=== PATIENT | male | born 1980 | race Caucasian/White ===

== ENCOUNTER 2017-08-14 15:22 | Observation (INO) | payer BC ==
[2017-08-14 16:01] VITALS: BMI 38.3
[2017-08-14] MEDS ORDERED: ONDANSETRON 4 MG/2 ML VIAL IV PRN (16:47)
[2017-08-14] MEDS ORDERED: ACETAMINOPHEN 500 MG TAB PO PRN (16:47)
[2017-08-14] MEDS ORDERED: BENZONATATE 100 MG CAP PO PRN (18:09)
--- NOTE | 2017-08-14 18:14 | P.SSS ---
Patient History Date of Service: 08/14/17 Primary Care Provider: None Reason for admission: Cough and Congestion History of Present Illness: 37-year-old male with significant past medical history asthma who presented to [facility] ER complaining of having cough congestion and sore throat for about 2- 3 days. Patient stated that he has his son who was recently diagnosed with bronchitis and was given antibiotics by his primary care doctor. Patient stated that he thinks that he got the infection from his son and has been coughing a lot lately as well. Patient states that he does bring up phlegm which is he LL alignment Yifan. Has had nasal congestion and sore throat as well for past 2-3 days. Patient denies having any fever or chills at home. At all to see ER patient was found to have normal white count along with chest x- ray that was within normal limits and CT scan which was also negative for any acute findings. Patient was transferred to the hospital as he continued to have wheezing after 1 treatment. Pt mother is a smoker who smokes in the house. Allergies Penicillins Allergy (Verified 08/14/17 15:41) Unknown Home Medications: Albuterol Inhaler [Ventolin Inhaler*] 2 puff IH Q6H PRN #1 hfa.aer.ad 08/14/17 Fluticasone/Salmeterol [Advair Hfa 115-21 Mcg Inhaler] 2 puff IH BID #2 aer.w.adap 08/14/17 Montelukast [Singulair*] 10 mg PO DAILY #14 tab 08/14/17 Prednisone [Deltasone*] 10 mg PO DAILY #10 tab 08/14/17 Trazodone HCl 100 mg PO BID 08/14/17 - Past Medical/Surgical History Has patient received pneumonia vaccine in the past: No Diabetic: No -: right testicle pain - Family History Brother -: Diabetes - Social History Smoking Status: Never smoker Alcohol use: Yes CD- Drugs: No Caffeine use: Yes Place of Residence: Home Review of Systems General: As per HPI Physical Examination - Vital Signs Temperature: 98.2 F Blood Pressure: 146/77 Pulse: 81 Respirations: 18 Pulse Ox (%): 97 - Physical Exam General: Alert, In no apparent distress, Oriented x3 HEENT: Atraumatic Neck: Supple Respiratory: Clear to auscultation bilaterally, Normal air movement Cardiovascular: Regular rate/rhythm, Normal S1 S2 Gastrointestinal: Normal bowel sounds, Soft and benign, Non-distended, No tenderness Musculoskeletal: No tenderness Integumentary: No rashes Neurological: Normal gait, Normal speech, Normal strength at 5/5 x4 extr, Normal tone, Normal affect Lymphatics: No axilla or inguinal lymphadenopathy - Diagnosis (Problem(s)) (1) Asthma exacerbation Current Visit: Yes Status: Acute Plan: H/O of Intermittent Mild Asthma. now with Exacerbation most likely 2.2 to viral Illness -IV fluids, Nebs and Steroids -DC home today with Inhalers and steroids. Qualifiers: Asthma severity: mild Asthma persistence: intermittent Qualified Code(s) : J45.21 - Mild intermittent asthma with (acute) exacerbation (2) Bronchitis Current Visit: Yes Status: Chronic Treatment Summary: Patient received 1 treatment of Duonebs here in the hospital. No wheezing was found and he physical examination this patient was discharged home under stable condition. Patient was given prescription for albuterol inhaler along with Advair and singular to be taken at home. Patient was also asked to follow up with pulmonology in about 1-2 days post discharge - Disposition Disposition: ROUTINE DISCHARGE Condition: GOOD Diet: Regular Activity: Ad spencer
[2017-08-14] MEDS: NA CHLORIDE 0.9% 1,000 ML IV SCH ×2 (18:19→20:20)
[2017-08-14] MEDS ORDERED: PHENOL 1.4% ORAL SPRAY 180ML MM PRN (18:54)
[2017-08-14] MEDS: IPRATROPIUM BROM 0.5MG/2.5ML NEB SCH (19:40)
[2017-08-14] MEDS: ALBUTEROL 2.5 MG/3 ML NEB SOL NEB SCH (19:41)
[2017-08-14 21:36] VITALS: O2SAT 95
[2017-08-14] MEDS ORDERED: GUAIFENESIN/CODEINE 5ML UCUP PO PRN (23:23)
[2017-08-14] MEDS ORDERED: TEMAZEPAM 15 MG CAP PO PRN (23:26)
[2017-08-15] MEDS: ALBUTEROL 2.5 MG/3 ML NEB SOL NEB SCH ×2 (01:13→07:56)
[2017-08-15] MEDS: IPRATROPIUM BROM 0.5MG/2.5ML NEB SCH ×2 (01:13→07:56)
--- NOTE | 2017-08-15 03:12 | P.PN ---
Date of Service: 08/14/17 Patient was upset that he was just transferred from outside emergency room to our facility and being discharged. He states he was not feeling any better. He is hoarse and not really able to make out what he was saying at times because he kept losing his voice. At the emergency room across the street he was diagnosed with pneumonia and transferred to our facility at around 3:30 p.m. Patient appeared clinically stable after he arrived, and he was arranged for discharge home. However, he tells me that he is not feeling much better. He does not feel like he is ready to be discharged. Patient did just arrived so at this time I will hold his discharge and reassess him in the morning. He has a persistent cough, he is hoarse, and he is getting short of breath really easily. He is also congested, so will continue with current treatment plan that he was admitted to the hospital with initially. He does have morbid obesity and has a history of ADD, as well as depression as his brother about a year ago and he has been having a hard time dealing with the loss of his brother. He takes Depakote and trazodone for this. This is prescribed by Dr. Mcknight. 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 Will continue to monitor him closely overnight, and I anticipate discharge home in the morning if he remains afebrile and his respiratory status does not worsen.
[2017-08-15 04:39] LABS: Absolute Lymphocytes (CBC) 1.5 K/uL (0.7-4.9); Absolute Monocytes 0.6 K/uL (0.1-1.3); Absolute Neutrophil 11.9 K/uL (1.8-8.0); Basophils % 0.4 % (0-1.3); Hematocrit 38.2 % (39.6-49.0); Lymphocytes % 10.6 % (15.3-44.8); MCH 28.1 pg (27.0-35.0); MCV 87.2 fL (80-100); MPV 8.6 fL (7.6-11.3); Monocytes % 4.1 % (3.3-12.3); RBC Red Blood Cell Count 4.38 M/uL (4.33-5.43)
[2017-08-15] MEDS ORDERED: CEFTRIAXONE/SWI 1gm 1 GM/10 ML SYR ONE (05:17)
[2017-08-15] MEDS: predniSONE 10 MG TAB PO SCH ×2 (05:23→08:58)
[2017-08-15] MEDS ORDERED: CEFTRIAXONE 1 GM/NS 50 ML 1 GM/50 ML BAG IV SCH (06:00)
--- NOTE | 2017-08-15 07:05 | P.DS ---
Discharge Date: 08/15/17 Primary Care Provider: None Disposition: ROUTINE DISCHARGE Discharge Condition: GOOD Reason for Admission: Cough and Congestion Brief History of Present Illness: 37-year-old male with significant past medical history asthma who presented to [place] ER complaining of having cough congestion and sore throat for about 2-3 days. Patient stated that he has his son who was recently diagnosed with bronchitis and was given antibiotics by his primary care doctor. Patient stated that he thinks that he got the infection from his son and has been coughing a lot lately as well. Patient has been hoarse and difficult to understand. He has had nasal congestion and sore throat as well for past 2-3 days. Patient denies having any fever or chills at home. In the ER patient was found to have normal white count along with chest x-ray with possible pneumonia and CT scan which was negative for any acute pathology. Patient was transferred to the hospital as he continued to have wheezing after 1 treatment. Vital Signs/Physical Exam: Temp Pulse Resp BP Pulse Ox 98.7 F 75 18 103/59 L 98 08/15/17 04:00 08/15/17 04:00 08/15/17 04:00 08/15/17 04:00 08/15/17 04:00 Laboratory Data at Discharge: WBC 14.0 K/uL (4.3-10.9) H 08/15/17 04:16 Hgb 12.3 g/dL (13.6-17.9) L 08/15/17 04:16 Hct 38.2 % (39.6-49.0) L 08/15/17 04:16 Plt Count 343 K/uL (152-406) 08/15/17 04:16 Sodium Cancelled 08/15/17 05:00 Potassium Cancelled 08/15/17 05:00 BUN Cancelled 08/15/17 05:00 Creatinine Cancelled 08/15/17 05:00 Glucose Cancelled 08/15/17 05:00 Phosphorus Cancelled 08/15/17 05:00 Magnesium Cancelled 08/15/17 05:00 B-Natriuretic Peptide 41 pg/ml (<=100) 08/15/17 04:16 Home Medications: Albuterol Inhaler [Ventolin Inhaler*] 2 puff IH Q6H PRN #1 hfa.aer.ad 08/14/17 Montelukast [Singulair*] 10 mg PO DAILY #14 tab 08/14/17 Prednisone [Deltasone*] 10 mg PO DAILY #10 tab 08/14/17 Trazodone HCl 100 mg PO BID 08/14/17 Cefdinir [Omnicef] 300 mg PO BID #10 capsule 08/15/17 Guaifen W/Codeine Syrup [ROBITUSSIN A-C Syrup*] 10 ml PO BID PRN #100 ml New Medications: Albuterol Inhaler [Ventolin Inhaler*] 2 puff IH Q6H PRN #1 hfa.aer.ad PRN Reason: Shortness Of Breath Cefdinir [Omnicef] 300 mg PO BID #10 capsule Guaifen W/Codeine Syrup [ROBITUSSIN A-C Syrup*] 10 ml PO BID PRN #100 ml PRN Reason: Cough Montelukast [Singulair*] 10 mg PO DAILY #14 tab Prednisone [Deltasone*] 10 mg PO DAILY #10 tab Patient Discharge Instructions: OK TO DC IV AND DC HOME. FOLLOW-UP WITH PRIMARY CARE PROVIDER IN 1-2 WEEKS. FOLLOW-UP WITH Pulmonary IN 1-2 WEEKS. RETURN TO THE ER IF symptoms worsen. CALL or TEXT DR. PARKER AT [phone] IF ANY QUESTIONS REGARDING HOSPITAL STAY. PLEASE CALL THE FLOOR AT [phone] IF ANY MEDICATION OR NURSING QUESTIONS. Diet: Regular Activity: Ad spencer Followup: Jeancarlos Franz MD [ACTIVE - CAN ADMIT] - 1 Week (Call to schedule an appointment)
[2017-08-15 08:17] VITALS: BP 126/58; TEMP 98
[2017-08-15] MEDS ORDERED: predniSONE 10 MG TAB PO SCH (09:00)
[2017-08-16] MEDS ORDERED: CEFTRIAXONE/SWI 1gm 1 GM/10 ML SYR IV SCH (06:00)
== END 2017-08-15 10:01 | disposition home or self-care (01) ==
LOC: 4TH 15:22
PROVIDERS: ADMIT Family Medicine; ATTEND Family Medicine
DX: J45.901 Unspecified asthma with (acute) exacerbation (principal); E66.01 Morbid (severe) obesity due to excess calories; Z68.38 Body mass index [BMI] 38.0-38.9, adult; F32.9 Major depressive disorder, single episode, unspecified
CPT/HCPCS: 36415; 83880; 85025; 94760; G0378; J0696; J7030; J7512

== ENCOUNTER 2018-01-02 11:09 | Emergency (ER) | payer BC ==
[2018-01-02] MEDS ORDERED: HYDROCODONE/APAP 7.5/325 MG TAB ONE (11:38)
[2018-01-02] MEDS ORDERED: MORPHINE 4 MG/ML SYR ONE (12:22)
[2018-01-02] MEDS ORDERED: ONDANSETRON 4 MG/2 ML VIAL ONE (12:22)
--- NOTE | 2018-01-02 13:07 | RAD REPORT ---
EXAM DESCRIPTION: CT - Chest Abdomen W Con - 01/02/2018 12:58 pm CLINICAL HISTORY: Fall, pain and trauma to the left-sided chest and abdomen, severe left-sided rib p ain COMPARISON: None. TECHNIQUE: During dynamic enhancement using 100 milliliters nonionic IV contrast, axial 5 millimeter thick images of the chest and abdomen were obtained. Biphasic technique was utilized through the abd omen. Oral contrast was administered. All CT scans are performed using dose optimization technique as appropriate and may include automated exposure control or mA/KV adjustment according to patient size. FINDINGS: No pulmonary contusion or acute lung parenchymal process. No pneumothorax or pleural effus ion. No chest wall mass or abnormal axillary lymphadenopathy seen. Mediastinal and hilar regions sh ow no mass or lymphadenopathy. No pericardial thickening or effusion. No dislocation of the left hum eral head. No scapula fracture seen. Small portion of the superior scapula that is obscured. No clavi luciana fracture. No displaced rib fractures are present. No acute rib fractures confirmed. Costochondral junctions are not outside of normal range. No sternum fracture. No significant contusion or edema ch concha in the left-sided subcutaneous fatty tissues. The liver and spleen show no acute traumatic injury. Moderate diffuse fatty infiltration is present i n the liver. Pancreas, gallbladder and biliary tree are unremarkable. Renal function is symmetric wit h no traumatic kidney finding. Adrenal glands are normal. No traumatic injury to the bowel. No acute bowel finding. No free air, free fluid or inflammatory str anding. No hernia, mass or bulky lymphadenopathy. No significant bone or vascular finding. IMPRESSION: No pneumothorax, pulmonary contusion or acute CT chest finding. No rib fractures confirm ed. Fatty infiltration of the liver. No acute traumatic injury to the abdomen.
--- NOTE | 2018-01-02 13:14 | EDPHYS ---
Physician Documentation [facility] Name: Garth Agarwal Age: 37 yrs Sex: Male : 1980 Arrival Date: 01/02/2018 Time: 11:11 Bed 16 Private MD: None, None ED Physician Sawyer Pérez HPI: 01/02 11:33 This 37 yrs old Male presents to ER via Ambulatory with complaints of Fall kb Injury. 11:33 Details of fall: The patient fell from a height, out of a tree, approximately 2 feet, kb tree stump. Onset: The symptoms/episode began/occurred 2 hour(s) ago. Associated injuries: The patient sustained injury to the chest, specifically the left lower chest, contusion, pain with breathing, pain with movement, swelling, tenderness. Severity of symptoms: At their worst the symptoms were moderate, in the emergency department the symptoms are unchanged. The patient has not experienced similar symptoms in the past. The patient has not recently seen a physician. Historical: - Allergies: 11:18 PENICILLINS; hb - Home Meds: 11:18 None [Active]; hb - PMHx: 11:18 None; hb - PSHx: 11:18 None; hb - Immunization history:: Adult Immunizations up to date. - Social history:: Smoking status: Patient/guardian denies using tobacco. - Immunization history: Last tetanus immunization: - up to date. - Ebola Screening: : No symptoms or risks identified at this time. ROS: 11:33 Constitutional: Negative for fever, chills, and weight loss, Respiratory: Negative for kb shortness of breath, cough, wheezing, and pleuritic chest pain, Abdomen/GI: Negative for abdominal pain, nausea, vomiting, diarrhea, and constipation, Back: Negative for injury and pain, : Negative for injury, bleeding, discharge, and swelling, MS/Extremity: Negative for injury and deformity, Skin: Negative for injury, rash, and discoloration, Neuro: Negative for headache, weakness, numbness, tingling, and seizure. 11:33 Cardiovascular: Positive for chest pain, with movement, of the left lower chest. Exam: 11:33 Constitutional: This is a well developed, well nourished patient who is awake, alert, kb and in no acute distress. Head/Face: Normocephalic, atraumatic. Cardiovascular: Regular rate and rhythm with a normal S1 and S2. No gallops, murmurs, or rubs. Normal PMI, no JVD. No pulse deficits. Respiratory: Lungs have equal breath sounds bilaterally, clear to auscultation and percussion. No rales, rhonchi or wheezes noted. No increased work of breathing, no retractions or nasal flaring. Abdomen/GI: Soft, non-tender, with normal bowel sounds. No distension or tympany. No guarding or rebound. No evidence of tenderness throughout. Back: No spinal tenderness. No costovertebral tenderness. Full range of motion. Skin: Warm, dry with normal turgor. Normal color with no rashes, no lesions, and no evidence of cellulitis. MS/ Extremity: Pulses equal, no cyanosis. Neurovascular intact. Full, normal range of motion. Neuro: Awake and alert, GCS 15, oriented to person, place, time, and situation. Cranial nerves II-XII grossly intact. Motor strength 5/5 in all extremities. Sensory grossly intact. Cerebellar exam normal. Normal gait. 11:33 Chest/axilla: Inspection: erythema, Palpation: tenderness, that is moderate, of the left lower chest, that totally reproduces the patient's complaints. Vital Signs: 11:18 BP 149 / 102; Pulse 88; Resp 16; Temp 97.8; Pulse Ox 98% on R/A; Weight 108.86 kg; hb Height 5 ft. 6 in. (167.64 cm); Pain 10/10; 12:34 BP 154 / 100; Pulse 85; Resp 18; Pulse Ox 100% on R/A; hj 13:19 BP 156 / 90; Pulse 84; Resp 18; Pulse Ox 100% on R/A; hj 11:18 Body Mass Index 38.74 (108.86 kg, 167.64 cm) hb Osito Coma Score: 11:00 Eye Response: spontaneous(4). Verbal Response: oriented(5). Motor Response: obeys hj commands(6). Total: 15. Trauma Score (Adult): 11:00 Eye Response: spontaneous(1); Verbal Response: oriented(1); Motor Response: obeys commands(2); Systolic BP: > 89 mm Hg(4); Respiratory Rate: 10 to 29 per min(4); [place] Score: 15; Trauma Score: 12 MDM: 11:25 Patient medically screened. kb 11:36 Data reviewed: vital signs, nurses notes. Data interpreted: Pulse oximetry: on room air kb is 98 %. Interpretation: normal. 13:09 Counseling: I had a detailed discussion with the patient and/or guardian regarding: the kb historical points, exam findings, and any diagnostic results supporting the discharge/admit diagnosis, lab results, radiology results, the need for outpatient follow up, a family practitioner, to return to the emergency department if symptoms worsen or persist or if there are any questions or concerns that arise at home. 01/02 11:30 Order name: Creatinine for Radiology; Complete Time: 12:31 kb 01/02 11:30 Order name: CT Chest Abdomen W/ Contrast; Complete Time: 13:09 kb 01/02 11:30 Order name: IV Start; Complete Time: 11:55 kb Administered Medications: 11:30 Drug: [place] (7.5 mg-325 mg) 1 tabs Route: PO; hj 11:55 Follow up: Response: No adverse reaction; Pain is decreased hj 12:16 Drug: morphine 4 mg Route: IVP; Site: left antecubital; hj 13:15 Follow up: Response: No adverse reaction; Pain is decreased hj 12:16 Drug: Zofran 4 mg Route: IVP; Site: left antecubital; hj 13:15 Follow up: Response: No adverse reaction; Nausea is decreased hj 13:19 Drug: TORadol 30 mg Route: IVP; Site: left antecubital; hj 13:24 Follow up: Response: No adverse reaction hj Disposition: 01/02/18 13:13 Discharged to Home. Impression: Contusion of left front wall of thorax. - Condition is Stable. - Discharge Instructions: Chest Contusion, [id number]. - Prescriptions for Tylenol- Codeine #3 300-30 mg Oral Tablet - take 1 tablet by ORAL route every 6 hours As needed; 15 tablet. orphenadrine citrate 100 mg Oral Tablet Sustained Release - take 1 tablet by ORAL route 2 times per day As needed; 20 tablet. - Medication Reconciliation Form, Thank You Letter, Antibiotic Education, Prescription Opioid Use form. - Follow up: Emergency Department; When: As needed; Reason: Worsening of condition. Follow up: Private Physician; When: 2 - 3 days; Reason: Recheck today's complaints, Continuance of care, Re-evaluation by your physician. Signatures: Dispatcher [employer] EDWI Quiana Arce, FLEET ASSISTANT-C FLEET ASSISTANT-Ckb Osei Arce, RN RN Lisbeth Forde, RN RN Corrections: (The following items were deleted from the chart) 11:42 11:25 Chest Pa And Lat (2 Views)+RAD.RAD.BRZ ordered. [facility] EDWI 13:25 13:13 01/02/2018 13:13 Discharged to Home. Impression: Contusion of left front wall of hj thorax. Condition is Stable. Forms are Medication Reconciliation Form, Thank You Letter, Antibiotic Education, Prescription Opioid Use. Follow up: Emergency Department; When: As needed; Reason: Worsening of condition. Follow up: Private Physician; When: 2 - 3 days; Reason: Recheck today's complaints, Continuance of care, Re-evaluation by your physician. kb
--- NOTE | 2018-01-02 13:14 | ER ---
Nurse's Notes [facility] Emergency Department Name: Garth Agarwal Age: 37 yrs Sex: Male : 1980 Arrival Date: 01/02/2018 Time: 11:11 Bed 16 Private MD: None, None Diagnosis: Contusion of left front wall of thorax Presentation: 01/02 11:15 Presenting complaint: Patient states: I was standing on a tree stump trying to change a hb light and fell off and landed on my left side and I felt something pop in my chest. Pt now c/o severe left sided ribcage pain 01/17. Denies LOC. Care prior to arrival: Medication(s) given: Aleve 2 hrs WEB PRESSMAN. 11:15 Acuity: CAROL 3 hb 11:15 Method Of Arrival: Ambulatory hb 11:17 Mechanism of Injury: Fall out of chair approximately 2 feet. Trauma event details: hb Injury occurred in the [facility], Injury occurred: at home. Injury occurred: January 02, 2018 Injury occurred at: 09:00. 11:18 Transition of care: patient was not received from another setting of care. Onset of hj symptoms was January 02, 2018. Risk Assessment: Do you want to hurt yourself or someone else? Patient reports no desire to harm self or others. Initial Sepsis Screen: Does the patient meet any 2 criteria? No. Patient's initial sepsis screen is negative. Does the patient have a suspected source of infection? No. Patient's initial sepsis screen is negative. Triage Assessment: 11:18 General: Appears in no apparent distress. uncomfortable, obese, Behavior is hj cooperative, appropriate for age, crying. Pain: Complains of pain in chest. 11:18 EENT: No signs and/or symptoms were reported regarding the EENT system. Neuro: Level of Consciousness is awake, alert, obeys commands, Oriented to person, place, time, situation, Appropriate for age. Cardiovascular: Capillary refill < 3 seconds Patient's skin is warm and dry. Respiratory: Airway is patent Respiratory effort is even, unlabored, Respiratory pattern is regular, symmetrical. GI: No signs and/or symptoms were reported involving the gastrointestinal system. : No signs and/or symptoms were reported regarding the genitourinary system. Derm: No signs and/or symptoms reported regarding the dermatologic system. Musculoskeletal: Reports pain in chest. Trauma Activation: Not Applicable Physician: ED Physician; Name: ; Notified At: ; Arrived At: Physician: General Surgeon; Name: ; Notified At: ; Arrived At: Physician: Radiology; Name: ; Notified At: ; Arrived At: Physician: Respiratory; Name: ; Notified At: ; Arrived At: Physician: Lab; Name: ; Notified At: ; Arrived At: Historical: - Allergies: 11:18 PENICILLINS; hb - Home Meds: 11:18 None [Active]; hb - PMHx: 11:18 None; hb - PSHx: 11:18 None; hb - Immunization history:: Adult Immunizations up to date. - Social history:: Smoking status: Patient/guardian denies using tobacco. - Immunization history: Last tetanus immunization: - up to date. - Ebola Screening: : No symptoms or risks identified at this time. Screenin:45 Abuse screen: Denies threats or abuse. Denies injuries from another. Nutritional hj screening: No deficits noted. Tuberculosis screening: No symptoms or risk factors identified. Fall Risk Secondary diagnosis (15 points). Primary Survey: 11:16 A: Airway: patent, No supplemental oxygen in use on arrival. Oral cavity: clear, hb Trachea midline. Breathing/Chest: Respiratory pattern: regular, Respiratory effort: spontaneous, unlabored, Breath sounds: clear, bilaterally. Chest inspection: symmetrical rise and fall of the chest. Circulation: Skin color: pink, Skin temperature: warm, dry. Disability Alert. 12:24 Reassessment Airway Airway Patent Oxygen No O2 Oral cavity Clear +Gag reflex Trachea hj Midline Breathing/Chest Respiratory pattern Regular Respiratory effort Spontaneous Unlabored Breath sounds Clear Chest inspection Symmetrical Circulation Heart rhythm Sinus rhythm Heart tones Present Pulses Palpable Color [place] Temperature Warm Dry Disability Alert. Secondary Survey: 12:30 HEENT: No deficits noted. Gastrointestinal: No deficits noted. : No signs and/or hj symptoms were reported regarding the genitourinary system. Musculoskeletal: Reports pain in chest. Assessment: 12:14 Reassessment: still complaints of pain; MD notified;. hj Vital Signs: 11:18 BP 149 / 102; Pulse 88; Resp 16; Temp 97.8; Pulse Ox 98% on R/A; Weight 108.86 kg; hb Height 5 ft. 6 in. (167.64 cm); Pain 10/10; 12:34 BP 154 / 100; Pulse 85; Resp 18; Pulse Ox 100% on R/A; hj 13:19 BP 156 / 90; Pulse 84; Resp 18; Pulse Ox 100% on R/A; hj 11:18 Body Mass Index 38.74 (108.86 kg, 167.64 cm) hb Osito Coma Score: 11:00 Eye Response: spontaneous(4). Verbal Response: oriented(5). Motor Response: obeys hj commands(6). Total: 15. Trauma Score (Adult): 11:00 Eye Response: spontaneous(1); Verbal Response: oriented(1); Motor Response: obeys hj commands(2); Systolic BP: > 89 mm Hg(4); Respiratory Rate: 10 to 29 per min(4); [place] Score: 15; Trauma Score: 12 ED Course: 11:11 Patient arrived in ED. mr 11:12 None, None is Private Physician. mr 11:16 Triage completed. hb 11:18 Arm band placed on right wrist. hb 11:18 Patient has correct armband on for positive identification. Placed in gown. Bed in low hj position. Call light in reach. Side rails up X 1. Adult w/ patient. 11:18 Patient maintains SpO2 saturation greater than 95% on room air. hj 11:18 Thermoregulation: warm blanket given to patient. hj 11:20 Inserted saline lock: 22 gauge in left antecubital area, using aseptic technique. Blood hj collected. 11:25 Quiana [facility]ce FNP-C [facility]. kb 11:25 Sawyer Pérez MD is Attending Physician. kb 11:30 Osei Arce RN is Primary Nurse. hj 12:58 CT completed. Patient tolerated procedure well. Patient moved to CT via wheelchair. Patient moved back from CT. 12:58 CT Chest Abdomen W/ Contrast In Process Unspecified. EDMS 13:20 No provider procedures requiring assistance completed. IV discontinued, intact. hj Administered Medications: 11:30 Drug: [place] (7.5 mg-325 mg) 1 tabs Route: PO; hj 11:55 Follow up: Response: No adverse reaction; Pain is decreased hj 12:16 Drug: morphine 4 mg Route: IVP; Site: left antecubital; hj 13:15 Follow up: Response: No adverse reaction; Pain is decreased hj 12:16 Drug: Zofran 4 mg Route: IVP; Site: left antecubital; hj 13:15 Follow up: Response: No adverse reaction; Nausea is decreased hj 13:19 Drug: TORadol 30 mg Route: IVP; Site: left antecubital; hj 13:24 Follow up: Response: No adverse reaction hj Intake: 13:25 PO: 50ml; Total: 50ml. hj Output: 13:25 Urine: 0ml; Total: 0ml. hj Outcome: 13:13 Discharge ordered by . keyonna 13:24 Discharged to home ambulatory, with family. hj 13:24 Condition: stable 13:24 Discharge instructions given to patient, family, Instructed on discharge instructions, follow up and referral plans. medication usage, Demonstrated understanding of instructions, follow-up care, medications, Prescriptions given X 2. 13:25 Patient's length of stay was not longer than 2 hours. hj 13:25 Patient left the ED. Signatures: Dispatcher [employer] EDAK Quiana Arce, JOHN CABRERA-Carmen Duckworth Susan Osei Arce, ALAN RN Lisbeth Forde, ALAN RN hb Corrections: (The following items were deleted from the chart) 11:17 11:15 Care prior to arrival: None. hb hb
[2018-01-02] MEDS ORDERED: KETOROLAC 30 MG/ML INJ ONE (13:28)
[2018-01-02 13:32] VITALS: TEMP 97.8
[2018-01-02 13:33] VITALS: O2SAT 100
[2018-01-02 13:34] VITALS: BP 156/90
== END 2018-01-02 13:25 | disposition home or self-care (01) ==
LOC: ER 11:09
DX: S20.212A Contusion of left front wall of thorax, initial encounter (principal); W14.XXXA Fall from tree, initial encounter; Y93.9 Activity, unspecified; Y92.9 Unspecified place or not applicable; Z88.0 Allergy status to penicillin
CPT/HCPCS: 36415; 71260; 74160; 96374; 96375; 99285; J2405; Q9967

== ENCOUNTER 2021-08-09 23:57 | Observation (INO) | payer BC, SELFPAY ==
--- OUTSIDE RECORDS SUMMARY | 2021-08-09 23:59 | XMS REPORT | Continuity of Care Document ---
:1980 Author Organization [facility] t Address [address] [place] [address] Care Team Providers Name Role Phone Pcp, Does Not Have A Primary Care Physician Ana Cristina Pettit DO Attending Clinician Payers Payer Name Policy Type Policy Number Effective Date Expiration Date S [facility] [id number] 2015 00:00:00 Problems Condition Condition Condition Status Onset Resolution Last Treating Co mments Source Name Details Category Date Date Treatment Clinician Date No known No known Disease Unive rs active active ity of problems problems [facility] Allergies, Adverse Reactions, Alerts Allergy Allergy Status Severity Reaction(s) Onset Inactive Treating Comm ents Source Name Type Date Date Clinician Penicill Propensi Active Rash Univer s in ty to 8-26 ity of adverse 00:00: [place] reaction 00 [facility] [place] PENICILL DRUG Active Rash 2020-0 Univers IN INGREDI 8-26 ity of 00:00: [place] 00 [facility] NO KNOWN Drug Active Univers ALLERGIE Class ity of S [facility] Social History Social Habit Start Date Stop Date Quantity Comments Source Exposure to Not sure [facility] SARS-CoV-2 (event) Medica l Branch Sex Assigned At [birth year] [facility] 00:00:00 00:00:00 [facility] Smoking Status Start Date Stop Date Source Unknown if ever smoked [facility] Medications Ordered Filled Start Stop Current Ordering Indication Dosage Frequency Signature Comments Components Source Medication Medication Date Date Medication? Clinician (SIG) Name Name diazePAM 2020-0 2021- No 5mg 5 mg, Univers (VALIUM) 12-04 Oral, ity of tablet 5 mg 03:15[place]16 [place], [facility] 12/03/20 at Branch 2215, GOLD diazePAM 2020- No 5mg 5 mg, Univers (VALIUM) 12-04 Oral, ity of tablet 5 mg 03:15: 02:16 [place] dose, [facility] 12/03/20 at Branch 2215, GOLD HYDROcodone 2020- No 1{tbl} 1 tablet, Univers -acetaminop 12-04 Oral, ity of hen (NORCO 02:30: 01:44 ONCE, 1 [place] as 5) 5-325 mg 00 :00 dose, [facility] tablet 1 12/03/20 at [facility] tablet 2130, GOLD HYDROcodone 2020- No 1{tbl} 1 tablet, Univers -acetaminop 12-04 Oral, ity of hen (NORCO 02:30: 01:44 ONCE, 1 [place] as 5) 5-325 mg 00 :00 dose, [facility] tablet 1 12/03/20 at [facility] tablet 2130, GOLD ketorolac 2020- No 30mg 30 mg, Unive rs (TORADOL) 12-04 Slow IV ity of injection 02:00: 01:05 Push, [place] 30 mg 00 :00 ONCE, 1 Medical dose, [facility] 12/03/20 at 2100, GOLD
Fa culty member approving Restricted medication : DIANNE PETTIT ketorolac 2020- No 30mg 30 mg, Unive rs (TORADOL) 12-04 Slow IV ity of injection 02:00: 01:05 Push, [place] 30 mg 00 :00 ONCE, 1 Medical dose, [facility] 12/03/20 at 2100, GOLD
Fa culty member approving Restricted medication : DIANNE PETTIT cyclobenzap Yes [id number] 10mg Take 1 Univers rine 10 mg 12-03 tablet by ity of tablet 00:00: mouth 3 [place] 00 (three) Medical times [place] daily as needed for Muscle Spasms. cyclobenzap Yes [id number] 10mg Take 1 [facility] rin 10 mg 8-26 tablet by ity of tablet 00:00: mouth 3 00 (three) Medical times [place] daily as needed for Muscle Spasms. Vital Signs Vital Name Observation Time Observation Value Comments Source Systolic blood 2020-12-04 02:00:00 156 mm[Hg] [facility] Diastolic blood 2020-12-04 02:00:00 91 mm[Hg] [facility] rate 2020-12-04 02:00:00 61 /min [facility] Respiratory rate 2020-12-04 02:00:00 24 /min [facility] Oxygen saturation in 2020-12-04 02:00:00 97 /min [facility] Arterial blood by [facility] Pulse oximetry Branch Body temperature 2020-12-03 23:33:[address] [facility] Body weight 2020-12-03 23:33:00 97.523 kg [facility] Procedures Procedure Date / Time Performed Performing Clinician Sourc e XR CHEST 1 VW 2020-12-04 00:38:35 Chandler, [facility] LIPASE 2020-12-03 23:53:00 [facility] TROPONIN I 2020-12-03 23:53:00 Poca [facility] COMP. METABOLIC PANEL 2020-12-03 23:53:00 Jh Chandler [facility] ([id number]) [facility] CBC WITH DIFF 2020-12-03 23:53:00 Chandler, [facility] NOTICE OF PRIVACY 2020-12-03 23:17:10 Doctor Unassigned, No [facility] Name Medical Branch CONSENT/REFUSAL FOR 2020-12-03 23:16:35 Doctor Unassigned, No Un [facility] DIAGNOSIS AND Name Medical Branch TREATMENT CONSENT/REFUSAL FOR 2020-12-03 23:16:33 Doctor Unassigned, No [facility] [place] DIAGNOSIS AND Name Medical Branch TREATMENT Encounters Start End Encounter Admission Attending Care Care Encounter Source Date/Time Date/Time Type Type Clinicians Facility Department ID 2020-12-03 2020-12-03 Emergency Karthik, [facility] [id number] Univers 18:41:00 21:29:00 Dianne Boyd [id number] [facility] [id number] [facility] [id number] [facility] Branch 2020-12-03 2020-12-03 Emergency X [facility] ERT [id number] Univers 18:15:00 18:15:00 ity [facility] Results Test Description Test Time Test Comments Results Result Comments Source TROPONIN I 2020-12-04 00:32:23 Test Item Value Reference Range Interpretation Comme nts TROPONIN I (test code = 0.005 ng/mL See_Comment [Au tomated message] The 7839754724) system which ge nerated this result tra nsmitted reference range : <=0.034. The reference r concha was not used to int erpret this result as normal/abnormal . JAVY (test code = JAVY) Reference (Normal) Range (defined by the 99th percentile reference limit): <= 0.034 ng/mL Note: Cardiac troponin begins to rise 3-4 hours after the onset of ischemia. Repeat in 4-6 hours if the sample was drawn within 3-4 hours of the onset of the symptom and found normal. Diagnosis of myocardial injury is made with acute changes in cTn concentrations with at least one serial sample above the 99th percentile upper reference limit (URL), taken together with the patient's clinical presentation. Biotin has been reported to cause a negative bias, interpret results relative to patient's use of biotin. Lab Interpretation Normal (test code = 60135-5) [facility] [id number] 00:32:23 Test Item Value Reference Range Interpretation Comments TROPONIN I (test code = 0.005 ng/mL See_Comment [Au tomated [id number]) message] The sy stem which generated this result transmitted reference range : <=0.034. The reference range was not used to interpret this result as normal/abnormal . JAVY (test code = JAVY) Lab Interpretation Normal (test code = 41428-7) [facility]OLIC PAN[facility] ([id number])2020-12-04 00:21:03 Test Item Value Reference Range Interpretation Comments NA (test code = 141 mmol/L 135-145 3009262280) K (test code = 3.8 mmol/L 3.5-5.0 6317656908) CL (test code = 104 mmol/L 98-108 3229045001) CO2 TOTAL (test code = 28 mmol/L 23-31 7976761019) AGAP (test code = 2-16 8219439357) BUN (test code = 18 mg/dL 7-23 4017147596) GLUCOSE (test code = 120 mg/dL 70-110 H 0471575525) CREATININE (test code = 0.77 mg/dL 0.60-1.25 0677902670) TOTAL BILI (test code = 0.3 mg/dL 0.1-1.2 8640148718) CALCIUM (test code = 9.4 mg/dL 8.6-10.6 3192098875) T PROTEIN (test code = 8.0 g/dL 6.3-8.2 8078106642) ALBUMIN (test code = 4.5 g/dL 3.5-5.0 4263735498) ALK PHOS (test code = 72 U/L 34-122 4482963734) ALTv (test code = 32 U/L 5-50 1742-6) AST(SGOT) (test code = 29 U/L 13-40 2067534837) eGFR (test code = mL/min/1.73m2 0362656432) JAVY (test code = JAVY) Association of Glomerular Filtration Rate (GFR) and Staging of Kidney Disease* + --+ --+ ------+| GFR (mL/min/1.73 m2) ?| With Kidney Damage ?| ?Without Kidney Damage+ --------+ --------+ +| ?>90 ?| ?Stage one ?| ? Normal ?+ ---+ ---+ -------+| ?60-89 ?| ?Stage two ?| ? Decreased GFR ? + --+ --+ ------+| ?30-59 ?| ?Stage three ?| ? Stage three ? + --+ --+ ------+| ?15-29 ?| ?Stage four ? | ? Stage four ?+ ---+ ---+ -------+| ?<15 (or dialysis) ? ?| ?Stage five ? | ? Stage five ?+ ---+ ---+ -------+ *Each stage assumes the associated GFR level has been in effect for at least three months. ?Stages 1 to 5, with or without kidney disease, indicate chronic kidney disease. Notes: Determination of stages one and two (with eGFR >59mL/min/1.73 m2) requires estimation of kidney damage for at least three months as defined by structural or functional abnormalities of the kidney, manifested by either:Pathological abnormalities or Markers of kidney damage (including abnormalities in the composition of the blood or urine or abnormalities in imaging tests). Lab Interpretation Abnormal (test code = 52006-3) [facility]. METABOLIC PANEL ([id number])2020-12-04 00:21:03 Test Item Value Reference Range Interpretation Comments NA (test code = 3990226874) 141 mmol/L 135-145 K (test code = 0585928715) 3.8 mmol/L 3.5-5.0 CL (test code = 4496101608) 104 mmol/L 98-108 CO2 TOTAL (test code = 6200561977) 28 mmol/L 23-31 AGAP (test code = 4131969365) 2-16 BUN (test code = 9875043962) 18 mg/dL 7-23 GLUCOSE (test code = 8369734451) 120 mg/dL 70-110 H CREATININE (test code = 0.77 mg/dL 0.60-1.25 0715028615) TOTAL BILI (test code = 0.3 mg/dL 0.1-1.8 0501420676) CALCIUM (test code = 3127995041) 9.4 mg/dL 8.6-10.6 T PROTEIN (test code = 8613172648) 8.0 g/dL 6.3-8.2 ALBUMIN (test code = 2779842998) 4.5 g/dL 3.5-5.0 ALK PHOS (test code = 9753802759) 72 U/L 34-122 ALTv (test code = 1742-6) 32 U/L 5-50 AST(SGOT) (test code = 2931872613) 29 U/L 13-40 eGFR (test code = 1859394313) mL/min/1.73m2 JAVY (test code = JAVY) Lab Interpretation (test code = Abnormal 47300-2) [facility] [id number] 00:20:42 Test Item Value Reference Range Interpretation Comments LIPASE (test code = 6969644596) 108 U/L 0-220 Lab Interpretation (test code = Normal 13892-2) [facility], [id number] 00:20:42 Test Item Value Reference Range Interpretation Comments LIPASE (test code = 3826813462) 108 U/L 0-220 Lab Interpretation (test code = Normal 27718-4) [facility] WITH [id number] 00:09:41 Test Item Value Reference Range Interpretation Comments WBC (test code = See_Comment [Automated 7190-2) message] The sy stem which generated this result transmitted reference range : 4.20 - 10.70 10*3/?L. The reference range was not used to interpret this result as normal/abnormal . RBC (test code = See_Comment [Automated 799-8) message] The sy stem which generated this result transmitted reference range : 4.26 - 5.52 10*6/?L. The reference range was not used to interpret this result as normal/abnormal . HGB (test code = 13.7 g/dL 12.2-16.4 718-7) HCT (test code = 41.5 % 38.4-49.3 4544-3) MCV (test code = 88.9 fL 81.7-95.6 787-2) MCH (test code = 29.3 pg 26.1-32.7 785-6) MCHC (test code = 33.0 g/dL 31.2-35.0 786-4) RDW-SD (test code = 41.1 fL 38.5-51.6 38811-3) RDW-CV (test code = 12.7 % 12.1-15.4 788-0) PLT (test code = See_Comment H [Automated 797-3) message] The sy stem which generated this result transmitted reference range : 150 - 328 10*3/ ?L. The reference r concha was not used to interpret this result as normal/abnormal . MPV (test code = 10.0 fL 9.8-13.0 11580-9) NRBC/100 WBC (test See_Comment [Automat ed code = 9314143303) message] The system which generated this result transmitted reference range : 0.0 - 10.0 /100 WBCs. The refer ence range was not u sed to interpret th is result as normal/abnormal . NRBC x10^3 (test code <0.01 See_Comment [Auto mated = 8803981637) message] The s ystem which generated this result transmitted reference range : 10*3/?L. The reference range was not used to interpret this result as normal/abnormal . GRAN MAT (NEUT) % 51.6 % (test code = 770-8) IMM GRAN % (test code 0.30 % = 2629853866) LYMPH % (test code = 35.6 % 736-9) MONO % (test code = 4.8 % 5905-5) EOS % (test code = 6.9 % 713-8) BASO % (test code = 0.8 % 706-2) GRAN MAT x10^3(ANC) 4.88 10*3/uL 1.99-6.95 (test code = 4096010265) IMM GRAN x10^3 (test 0.03 10*3/uL 0.00-0.06 code = 4171587754) LYMPH x10^3 (test code 3.37 10*3/uL 1.09-3.23 H = 731-0) MONO x10^3 (test code 0.45 10*3/uL 0.36-1.02 = 742-7) EOS x10^3 (test code = 0.65 10*3/uL 0.06-0.53 H 711-2) BASO x10^3 (test code 0.08 10*3/uL 0.01-0.09 = 704-7) Lab Interpretation Abnormal (test code = 01695-0) [facility] WITH [id number] 00:09:41 Test Item Value Reference Range Interpretation Comments WBC (test code = See_Comment [Automated 6690-2) message] The sy stem which generated this result transmitted reference range : 4.20 - 10.70 10*3/?L. The reference range was not used to interpret this result as normal/abnormal . RBC (test code = See_Comment [Automated 789-8) message] The sy stem which generated this result transmitted reference range : 4.26 - 5.52 10*6/?L. The reference range was not used to interpret this result as normal/abnormal . HGB (test code = 13.7 g/dL 12.2-16.4 718-7) HCT (test code = 41.5 % 38.4-49.3 4544-3) MCV (test code = 88.9 fL 81.7-95.6 787-2) MCH (test code = 29.3 pg 26.1-32.7 785-6) MCHC (test code = 33.0 g/dL 31.2-35.0 786-4) RDW-SD (test code = 41.1 fL 38.5-51.6 07780-5) RDW-CV (test code = 12.7 % 12.1-15.4 788-0) PLT (test code = See_Comment H [Automated 777-3) message] The sy stem which generated this result transmitted reference range : 150 - 328 10*3/ ?L. The reference r concha was not used to interpret this result as normal/abnormal . MPV (test code = 10.0 fL 9.8-13.0 11099-8) NRBC/100 WBC (test See_Comment [Automat ed code = 1864645779) message] The system which generated this result transmitted reference range : 0.0 - 10.0 /100 WBCs. The refer ence range was not u sed to interpret th is result as normal/abnormal . NRBC x10^3 (test code <0.01 See_Comment [Auto mated = 5986416240) message] The s ystem which generated this result transmitted reference range : 10*3/?L. The reference range was not used to interpret this result as normal/abnormal . GRAN MAT (NEUT) % 51.6 % (test code = 770-8) IMM GRAN % (test code 0.30 % = 8294253739) LYMPH % (test code = 35.6 % 736-9) MONO % (test code = 4.8 % 5905-5) EOS % (test code = 6.9 % 713-8) BASO % (test code = 0.8 % 706-2) GRAN MAT x10^3(ANC) 4.88 10*3/uL 1.99-6.95 (test code = 3288362187) IMM GRAN x10^3 (test 0.03 10*3/uL 0.00-0.06 code = 3086026753) LYMPH x10^3 (test code 3.37 10*3/uL 1.09-3.23 H = 731-0) MONO x10^3 (test code 0.45 10*3/uL 0.36-1.02 = 742-7) EOS x10^3 (test code = 0.65 10*3/uL 0.06-0.53 H 711-2) BASO x10^3 (test code 0.08 10*3/uL 0.01-0.09 = 704-7) Lab Interpretation Abnormal (test code = 17547-9) [facility]"
[2021-08-10 00:45] LABS: Absolute Lymphocytes (CBC) 2.9 K/uL (0.7-4.9); Hematocrit 38.9 % (39.6-49.0); Lymphocytes % 38.9 % (15.3-44.8); MPV 8.2 fL (7.6-11.3); RBC Red Blood Cell Count 4.44 M/uL (4.33-5.43)
[2021-08-10] MEDS ORDERED: KETOROLAC 30 MG/ML INJ ONE (00:48)
[2021-08-10] MEDS ORDERED: MORPHINE 2 MG/ML SYR ONE (00:48)
[2021-08-10] MEDS ORDERED: ONDANSETRON 4 MG/2 ML VIAL ONE ×2 (00:49→11:10)
[2021-08-10] MEDS ORDERED: NA CHLORIDE 0.9% 1,000 ML ONE (00:49)
[2021-08-10 00:53] LABS: Albumin 3.9 g/dL (3.4-5.0); Bilirubin Direct 0.1 mg/dL (0-0.2); Bilirubin Total 0.4 mg/dL (0.2-1.0); Potassium 3.3 mmol/L (3.5-5.1); Protein, Total 7.8 g/dL (6.4-8.2)
[2021-08-10 01:20] LABS: Urine Blood Negative (Negative); Urine Glucose Negative (Negative); Urine Protein Negative (Negative); Urine Specific Gravity <=1.005 (1.005-1.030)
[2021-08-10] MEDS ORDERED: HYDROMORPHONE HCL 1 MG/ML INJ ONE ×4 (01:35→11:10)
[2021-08-10] MEDS ORDERED: METRONIDAZOLE 500mg IVPB 500 MG/100 ML BAG IV ONE (02:53)
[2021-08-10] MEDS ORDERED: Levofloxacin 750mg IV 750 MG/150 ML BAG IV ONE (02:54)
--- NOTE | 2021-08-10 03:07 | ER ---
Nurse's Notes [facility] Name: Garth Agarwal Age: 41 yrs Sex: Male : 1980 Arrival Date: 08/09/2021 Time: 23:57 Bed 13 Private MD: Diagnosis: Diverticulitis of large intestine without perforation or abscess without bleeding;Fall (on) (from) unspecified stairs and steps;Hypokalemia;Pain in left hip;Abdominal tenderness;Contusion of abdominal wall Presentation: 08/10 00:11 Chief complaint: Patient states: fell from the 4th step of a 6 foot ladder. landed on lg3 my left side hitting my head. my said she thinks i passed out for a little bit but she is unsure. Coronavirus screen: Client denies travel out of the [place] in the last 14 days. At this time, the client does not indicate any symptoms associated with coronavirus-19. Ebola Screen: No symptoms or risks identified at this time. Initial Sepsis Screen: Does the patient meet any 2 criteria? No. Patient's initial sepsis screen is negative. Does the patient have a suspected source of infection? No. Patient's initial sepsis screen is negative. Risk Assessment: Do you want to hurt yourself or someone else? Patient reports no desire to harm self or others. Onset of symptoms was August 10, 2021. Mechanism of Injury: Fall. 00:11 Method Of Arrival: Wheelchair lg3 00:11 Acuity: CAROL 3 lg3 Triage Assessment: 00:14 General: Appears in no apparent distress. uncomfortable, Behavior is cooperative. Pain: lg3 Complains of pain in left sided head, left flank, left hip and left upper and lower quadrants of abdomen. EENT: No deficits noted. No signs and/or symptoms were reported regarding the EENT system. Neuro: No deficits noted. Level of Consciousness is awake, alert, obeys commands, Oriented to person, place, time, situation, Reports headache in left. Cardiovascular: No deficits noted. Denies chest pain, shortness of breath. Respiratory: No deficits noted. Airway is patent Trachea midline Respiratory effort is even, unlabored, Respiratory pattern is regular, symmetrical. GI: No deficits noted. Abdomen is round non-distended, Bowel sounds present X 4 quads. Reports lower abdominal pain, upper abdominal pain. : No deficits noted. No signs and/or symptoms were reported regarding the genitourinary system. Derm: No deficits noted. No signs and/or symptoms reported regarding the dermatologic system. Skin is intact, is healthy with good turgor, Skin is dry, Skin is pink, warm \T\ dry. Musculoskeletal: Circulation, motion, and sensation intact. Range of motion: intact in all extremities. Historical: - Allergies: 00:14 PENICILLINS; lg3 - Home Meds: 00:14 None [Active]; lg3 - PMHx: 00:14 None; lg3 - PSHx: 00:14 None; lg3 - Immunization history:: Adult Immunizations unknown, Client reports having NOT received the Covid vaccine. - Social history:: Smoking status: Patient denies any tobacco usage or history of. Patient uses alcohol, occasionally. - Family history:: not pertinent. Screenin:27 Abuse screen: Denies threats or abuse. Denies injuries from another. Nutritional lg3 screening: No deficits noted. Tuberculosis screening: No symptoms or risk factors identified. Fall Risk None identified. Assessment: 00:29 General: see triage assessment . lg3 02:04 Reassessment:. General: Appears in no apparent distress. uncomfortable, Behavior is lg3 calm, cooperative. Pain: Complains of pain in left sided abdomen, flank and back Pain currently is 10 out of 10 on a pain scale. Neuro: No deficits noted. Level of Consciousness is awake, alert, obeys commands, Oriented to person, place, time, situation. Cardiovascular: No deficits noted. Denies chest pain, shortness of breath. Respiratory: No deficits noted. Airway is patent Trachea midline Respiratory effort is even, unlabored, Respiratory pattern is regular, symmetrical. GI: Reports lower abdominal pain, upper abdominal pain. : No deficits noted. No signs and/or symptoms were reported regarding the genitourinary system. EENT: No deficits noted. No signs and/or symptoms were reported regarding the EENT system. Derm: No deficits noted. No signs and/or symptoms reported regarding the dermatologic system. Skin is intact, is healthy with good turgor, Skin is dry, Skin is pink, warm \T\ dry. Musculoskeletal: No deficits noted. 03:49 Reassessment: Patient appears in no apparent distress at this time. No changes from lg3 previously documented assessment. Patient and/or family updated on plan of care and expected duration. Pain level reassessed. Patient is alert, oriented x 3, equal unlabored respirations, skin warm/dry/pink. Vital Signs: 00:11 BP 128 / 70; Pulse 82; Resp 23; Temp 97.4(O); Pulse Ox 98% on R/A; Weight 97.52 kg (R); lg3 Height 5 ft. 7 in. (170.18 cm) (R); Pain 10/10; 02:07 BP 112 / 92; Pulse 76; Resp 18; Pulse Ox 99% on R/A; lg3 03:50 BP 135 / 65; Pulse 56; Resp 17; Pulse Ox 98% on R/A; lg3 00:11 Body Mass Index 33.67 (97.52 kg, 170.18 cm) lg3 ED Course: 08/09 23:57 Patient arrived in ED. k 08/10 00:06 Mickey Bruno MD is Attending Physician. elroy 00:11 Shannan Vo, ALAN is Primary Nurse. lg3 00:14 Triage completed. lg3 00:14 Arm band placed on left wrist. lg3 00:24 Inserted saline lock: 20 gauge in right antecubital area, using aseptic technique. vc1 Blood collected. 00:27 Patient has correct armband on for positive identification. Placed in gown. Bed in low lg3 position. Call light in reach. Side rails up X 1. Client placed on continuous cardiac and pulse oximetry monitoring. NIBP monitoring applied. monitor and storage bin tender on. Pulse ox on. NIBP on. Door closed. Noise minimized. Warm blanket given. 00:40 Alcohol Serum/Plasma Sent. lg3 00:40 CBC with Automated Diff Sent. lg3 00:40 Type and Screen Sent. lg3 00:40 Basic Metabolic Panel Sent. lg3 00:40 Liver (Hepatic) Function Sent. lg3 00:40 Lipase Sent. lg3 01:07 Lipase Sent. lg3 01:08 Alcohol Level Sent. lg3 01:08 LFT's Sent. lg3 01:08 Basic Metabolic Panel Sent. lg3 01:08 CBC with Diff Sent. lg3 01:08 Type And Screen Sent. lg3 01:08 CT Traumagram (Head C Spine CAP W Con) Sent. lg3 01:19 Head C Spine Cap W Con In Process Unspecified. EDMS 02:39 Hip Left 2 View XRAY In Process Unspecified. EDMS 02:54 XRAY Chest (1 view) In Process Unspecified. EDMS 02:54 XRAY Pelvis In Process Unspecified. EDMS 02:55 Femur Left XRAY In Process Unspecified. EDMS 03:05 Nelson Peters MD is Hospitalizing Provider. elroy Administered Medications: 01:14 Drug: TORadol (ketorolac) 30 mg Route: IVP; Site: right antecubital; lg3 01:14 Follow up: Response: No adverse reaction lg3 01:15 Drug: morphine 2 mg Route: IVP; Site: right antecubital; lg3 01:15 Follow up: Response: No adverse reaction lg3 01:15 Drug: Zofran (Ondansetron) 4 mg Route: IVP; Site: right antecubital; lg3 01:15 Follow up: Response: No adverse reaction lg3 01:16 Drug: NS 0.9% 1000 ml Route: IV; Rate: 1 bolus; Site: right antecubital; lg3 07:09 Follow up: Response: No adverse reaction; IV Status: Completed infusion; IV Intake: lg3 1000ml 02:15 Drug: Dilaudid (HYDROmorphone) 1 mg Route: IVP; Site: right antecubital; lg3 02:27 Follow up: Response: No adverse reaction lg3 02:45 Drug: Dilaudid (HYDROmorphone) 1 mg Route: IVP; Site: right antecubital; lg3 02:45 Follow up: Response: No adverse reaction lg3 03:41 Drug: levofloxacin 750 mg Volume: 150 ml; Route: IVPB; Infused Over: 90 mins; Site: lg3 right antecubital; 03:41 Follow up: Response: No adverse reaction; IV Status: Completed infusion; IV Intake: lg3 150ml 03:41 Drug: Flagyl (metroNIDAZOLE) 500 mg Volume: 100 ml; Route: IVPB; Rate: 200 ml/hr; lg3 Infused Over: 30 mins; Site: right antecubital; 03:41 Follow up: Response: No adverse reaction; IV Status: Completed infusion; IV Intake: lg3 100ml 04:07 Drug: NS 0.9% with KCl 20 mEq/L 1000 ml Route: IV; Rate: 125 mg/hr; Site: right lg3 antecubital; Intake: 03:41 IV: 100ml; Total: 100ml. lg3 03:41 IV: 150ml; Total: 250ml. lg3 07:09 IV: 1000ml; Total: 1250ml. lg3 Outcome: 03:06 Decision to Hospitalize by Provider. [facility] 11:38 Patient left the ED. ww Signatures: Dispatcher [employer] EDMickey El MD MD cha Gibson, Lacie, RN RN lg3 Valeria Ma RN RN ww Calcote, Vanessa, RN RN vc1 Tena Alexandre Corrections: (The following items were deleted from the chart) 02:27 01:10 Dilaudid (HYDROmorphone) 1 mg IVP in right antecubital lg3 lg3 02:27 02:26 Response: No adverse reaction lg3 lg3
--- NOTE | 2021-08-10 03:07 | EDPHYS ---
Physician Documentation [facility] Name: Garth Agarwal Age: 41 yrs Sex: Male : 1980 Arrival Date: 08/09/2021 Time: 23:57 Bed 13 Private MD: REBECA Physician Mickey Bruno HPI: 08/10 02:42 This 41 yrs old Male presents to ER via Wheelchair with complaints of Fell elroy off roof. 02:42 The patient presents with pain that is acute. The symptoms are located in the low back, elroy lumbar area and left low back. The pain radiates to the left low back and left mid back, to the . The problem was sustained during a fall, ladder 4 foot. Onset: The symptoms/episode began/occurred just prior to arrival. Modifying factors: The patient symptoms are alleviated by nothing, remaining still, the patient symptoms are aggravated by any movement. Associated signs and symptoms: Pertinent positives: abdominal pain, weakness. The patient or guardian reports decreased range of motion, pain, swelling. sustained from a fall, 4 steps ladder, There is no obvious deformity, The patient is not able to ambulate. Patient is not able to bear weight. Historical: - Allergies: 00:14 PENICILLINS; lg3 - Home Meds: 00:14 None [Active]; lg3 - PMHx: 00:14 None; lg3 - PSHx: 00:14 None; lg3 - Immunization history:: Adult Immunizations unknown, Client reports having NOT received the Covid vaccine. - Social history:: Smoking status: Patient denies any tobacco usage or history of. Patient uses alcohol, occasionally. - Family history:: not pertinent. ROS: 02:42 Constitutional: Negative for fever, chills, and weight loss, Eyes: Negative for injury, elroy pain, redness, and discharge, ENT: Negative for injury, pain, and discharge, Neck: Negative for injury, pain, and swelling, Cardiovascular: Negative for chest pain, palpitations, and edema, Respiratory: Negative for shortness of breath, cough, wheezing, and pleuritic chest pain, : Negative for injury, bleeding, discharge, and swelling, Skin: Negative for injury, rash, and discoloration, Neuro: Negative for headache, weakness, numbness, tingling, and seizure, Psych: Negative for depression, anxiety, suicide ideation, homicidal ideation, and hallucinations, Allergy/Immunology: Negative for hives, rash, and allergies, Endocrine: Negative for neck swelling, polydipsia, polyuria, polyphagia, and marked weight changes, Hematologic/Lymphatic: Negative for swollen nodes, abnormal bleeding, and unusual bruising. 02:42 Abdomen/GI: Positive for abdominal pain. 02:42 Back: Positive for decreased range of motion, pain at rest, pain with movement. 02:42 MS/extremity: Positive for contusion, decreased range of motion, pain, tenderness, of the left hip, lateral aspect of left thigh, left upper thigh and left quadriceps. Exam: 02:42 Constitutional: This is a well developed, well nourished patient who is awake, alert, elroy and in no acute distress. Head/Face: Normocephalic, atraumatic. Eyes: Pupils equal round and reactive to light, extra-ocular motions intact. Lids and lashes normal. Conjunctiva and sclera are non-icteric and not injected. Cornea within normal limits. Periorbital areas with no swelling, redness, or edema. ENT: Nares patent. No nasal discharge, no septal abnormalities noted. Tympanic membranes are normal and external auditory canals are clear. Oropharynx with no redness, swelling, or masses, exudates, or evidence of obstruction, uvula midline. Mucous membranes moist. Neck: Trachea midline, no thyromegaly or masses palpated, and no cervical lymphadenopathy. Supple, full range of motion without nuchal rigidity, or vertebral point tenderness. No Meningismus. Chest/axilla: Normal chest wall appearance and motion. Nontender with no deformity. No lesions are appreciated. Cardiovascular: Regular rate and rhythm with a normal S1 and S2. No gallops, murmurs, or rubs. Normal PMI, no JVD. No pulse deficits. Respiratory: Lungs have equal breath sounds bilaterally, clear to auscultation and percussion. No rales, rhonchi or wheezes noted. No increased work of breathing, no retractions or nasal flaring. Male : Normal genitalia with no discharge or lesions. Skin: Warm, dry with normal turgor. Normal color with no rashes, no lesions, and no evidence of cellulitis. Neuro: Awake and alert, GCS 15, oriented to person, place, time, and situation. Cranial nerves II-XII grossly intact. Motor strength 5/5 in all extremities. Sensory grossly intact. Cerebellar exam normal. Normal gait. Psych: Awake, alert, with orientation to person, place and time. Behavior, mood, and affect are within normal limits. 02:42 Abdomen/GI: Inspection: abdomen appears normal, Bowel sounds: normal, Palpation: mild abdominal tenderness, moderate abdominal tenderness, in the anterior aspect of left lateral abdomen, posterior aspect of left lateral abdomen, left upper quadrant and left lower quadrant. Vital Signs: 00:11 BP 128 / 70; Pulse 82; Resp 23; Temp 97.4(O); Pulse Ox 98% on R/A; Weight 97.52 kg (R); lg3 Height 5 ft. 7 in. (170.18 cm) (R); Pain 1010; 02:07 BP 112 / 92; Pulse 76; Resp 18; Pulse Ox 99% on R/A; lg3 03:50 BP 135 / 65; Pulse 56; Resp 17; Pulse Ox 98% on R/A; lg3 00:11 Body Mass Index 33.67 (97.52 kg, 170.18 cm) lg3 MDM: 00:06 Patient medically screened. elroy 02:51 Differential diagnosis: arthritis, strain, fracture, sciatica, contusion, Herniated elroy disc UTI. Data reviewed: vital signs, nurses notes, lab test result(s), EKG, radiologic studies, plain films. Data interpreted: Pulse oximetry: on room air is 99 %. Test interpretation: by ED physician or midlevel provider: plain radiologic studies. Counseling: I had a detailed discussion with the patient and/or guardian regarding: the historical points, exam findings, and any diagnostic results supporting the discharge/admit diagnosis, lab results, radiology results, the need for further work-up and treatment in the hospital. 08/10 00:10 Order name: Basic Metabolic Panel [facility] 08/10 00:10 Order name: CBC with Diff [facility] 08/10 00:10 Order name: Type And Screen [facility] 08/10 00:10 Order name: Lipase [facility] 08/10 00:10 Order name: LFT's [facility] 08/10 00:10 Order name: Alcohol Level [facility] 08/10 00:34 Order name: Basic Metabolic Panel; Complete Time: 01:34 [facility] 08/10 00:34 Order name: Liver (Hepatic) Function; Complete Time: 01:34 [facility] 08/10 00:34 Order name: Lipase; Complete Time: 01:34 [facility] 08/10 00:34 Order name: Alcohol Serum/Plasma; Complete Time: 01:34 [facility] 08/10 00:34 Order name: CBC with Automated Diff; Complete Time: 01:34 [facility] 08/10 00:34 Order name: Type and Screen; Complete Time: 01:34 [facility] 08/10 01:20 Order name: Urine Dipstick-Ancillary; Complete Time: 01:34 [facility] 08/10 01:31 Order name: ABO/RH no charge; Complete Time: 01:34 [facility] 08/10 00:10 Order name: CT Traumagram (Head C Spine CAP W Con) [facility] 08/10 00:10 Order name: XRAY Chest (1 view) [facility] 08/10 00:10 Order name: XRAY Pelvis [facility] 08/10 00:10 Order name: Labs collected and sent; Complete Time: 00:24 [facility] 08/10 00:10 Order name: Femur Left XRAY [facility] 08/10 00:10 Order name: Hip Left 2 View XRAY [facility] 08/10 00:37 Order name: Head C Spine Cap W Con [facility] 08/10 00:10 Order name: Urine Dipstick-Ancillary (obtain specimen); Complete Time: 01:07 [facility] Administered Medications: 01:14 Drug: TORadol (ketorolac) 30 mg Route: IVP; Site: right antecubital; lg3 01:14 Follow up: Response: No adverse reaction lg3 01:15 Drug: morphine 2 mg Route: IVP; Site: right antecubital; lg3 01:15 Follow up: Response: No adverse reaction lg3 01:15 Drug: Zofran (Ondansetron) 4 mg Route: IVP; Site: right antecubital; lg3 01:15 Follow up: Response: No adverse reaction lg3 01:16 Drug: NS 0.9% 1000 ml Route: IV; Rate: 1 bolus; Site: right antecubital; lg3 07:09 Follow up: Response: No adverse reaction; IV Status: Completed infusion; IV Intake: lg3 1000ml 02:15 Drug: Dilaudid (HYDROmorphone) 1 mg Route: IVP; Site: right antecubital; lg3 02:27 Follow up: Response: No adverse reaction lg3 02:45 Drug: Dilaudid (HYDROmorphone) 1 mg Route: IVP; Site: right antecubital; lg3 02:45 Follow up: Response: No adverse reaction lg3 03:41 Drug: levofloxacin 750 mg Volume: 150 ml; Route: IVPB; Infused Over: 90 mins; Site: lg3 right antecubital; 03:41 Follow up: Response: No adverse reaction; IV Status: Completed infusion; IV Intake: lg3 150ml 03:41 Drug: Flagyl (metroNIDAZOLE) 500 mg Volume: 100 ml; Route: IVPB; Rate: 200 ml/hr; lg3 Infused Over: 30 mins; Site: right antecubital; 03:41 Follow up: Response: No adverse reaction; IV Status: Completed infusion; IV Intake: lg3 100ml 04:07 Drug: NS 0.9% with KCl 20 mEq/L 1000 ml Route: IV; Rate: 125 mg/hr; Site: right lg3 antecubital; Disposition Summary: 08/10/21 03:06 Hospitalization Ordered Hospitalization Status: Observation elroy Provider: Nelson Peters cha Condition: Stable elroy Problem: new elroy Symptoms: have improved elroy Bed/Room Type: Standard elroy [facility]08[facility] 03:08[facility] Room Assignment: ERHOLD-(08/10/21 03:08) cg Diagnosis - Diverticulitis of large intestine without perforation or abscess without bleeding elroy - Fall (on) (from) unspecified stairs and steps elroy - Hypokalemia elroy - Pain in left hip elroy - Abdominal tenderness elroy - Contusion of abdominal wall elroy Forms: - Medication Reconciliation Form elroy - SBAR form elroy Signatures: Dispatcher [employer] Mickey Freeman MD MD cha Garcia, Cindy, RN RN Shannan Emanuel RN RN lg3 Corrections: (The following items were deleted from the chart) 03:08 03:06 Telemetry/MedSurg (observation) elroy 03:08 03:06 elroy
[2021-08-10] MEDS ORDERED: NS KCL 20MEQ 1,000 ML IV ONE (03:45)
[2021-08-10] MEDS ORDERED: NS KCL 20MEQ 20 MEQ/1,000 ML BAG IV SCH (04:00)
[2021-08-10] MEDS ORDERED: ONDANSETRON 4 MG/2 ML VIAL IV PRN (04:35)
[2021-08-10] MEDS ORDERED: ACETAMINOPHEN 325 MG TABLET PO PRN (04:35)
[2021-08-10] MEDS ORDERED: METRONIDAZOLE 500mg IVPB 500 MG/100 ML BAG IV SCH (05:00)
[2021-08-10] MEDS: HYDROMORPHONE HCL 1 MG/ML INJ IV SCH ×2 (05:00→09:00)
--- NOTE | 2021-08-10 08:39 | RAD REPORT ---
EXAM DESCRIPTION: RAD - Pelvis - 08/10/2021 2:52 am CLINICAL HISTORY: PAIN COMPARISON: Femur Left dated 08/10/2021; Chest Single View dated 08/10/2021 FINDINGS: No fracture, dislocation or radiographic evidence of AVN. Contrast is present in the urina ry bladder. IMPRESSION: Negative study.
[2021-08-10] MEDS ORDERED: FAMOTIDINE 20 MG/2 ML VIAL IV SCH (09:00)
[2021-08-10 10:33] VITALS: BMI 34.4
[2021-08-10 10:40] VITALS: BP 138/70; TEMP 97.1
[2021-08-10] MEDS ORDERED: FAMOTIDINE 20 MG/2 ML VIAL IV ONE (11:10)
[2021-08-10 11:48] VITALS: O2SAT 98
--- NOTE | 2021-08-10 19:50 | RAD REPORT ---
EXAM DESCRIPTION: ADDENDUM #1 Repeat imaging of the upper cervical spine shows improved alignment compared to prior study. Electronically signed by: Wilton Hurt MD 08/10/2021 4:29 AM CDT End of Addendum EXAM DESCRIPTION: Head C Spine Cap W Con CLINICAL HISTORY: 41 years Male FELL OFF LADDER TECHNIQUE: Noncontrast CT head and cervical spine. Trauma CT chest, abdomen, pelvis protocol using i ntravenous contrast. Coronal and sagittal reformats performed. All CT scans at this facility use dose modulation, iterative reconstruction, and/or weight based dosing when appropriate to reduce radiatio n dose to as low as reasonably achievable. COMPARISON: None. FINDINGS: Head: Brain: No intracranial hemorrhage, midline shift, mass or mass effect. No obvious large acute territo rial infarction. Ventricles: No hydrocephalus. Orbits: Unremarkable. Sinus: Partial opacification of the right maxillary sinus. Mastoid: clear Osseous: Unremarkable. Soft tissues: Unremarkable. Cervical spine: Vertebra: No acute fracture. Congenital nonfusion of the posterior arch of C1 Degenerative change: Multilevel degenerative changes. No high grade spinal canal stenosis. Alignment: Mild anterior positioning of the lateral mass of C1 on the left with respect to C2. Straig htening of the normal cervical lordosis without spondylolisthesis. Soft tissues: Unremarkable. Chest: Lungs: No consolidation. Pleura: No pneumothorax. No pleural effusion. Mediastinum: No mediastinal hematoma. No pericardial effusion. Vascular: No aneurysm or dissection. Bones: Mild multilevel degenerative changes. Soft tissues: Unremarkable. Abdomen/Pelvis: Liver: No focal lesion. Gallbladder: No calcified stone. Pancreas: Within normal limits. Spleen: Within normal limits. Kidney: No stone or hydronephrosis. No focal lesion. Adrenal glands: Within normal limits. Vascular structures: Unremarkable. Bowel: Minimal diverticulosis with mild stranding in the distal descending colon. No bowel distention . Appendix: Not seen. Peritoneum: No free fluid or free air. Lymph Nodes: No lymphadenopathy. Reproductive: Unremarkable. Urinary bladder: Unremarkable. Osseous structures: Unremarkable. Soft tissues: Unremarkable. IMPRESSION: Head: 1. No acute intracranial findings. Cervical spine: 1. No acute cervical spine fracture. 2. Mild anterior positioning of the lateral mass of C1 on the left with respect to C2 which is probab ly positional. Another differential would be rotatory fixation. Correlate clinically. Chest: 1. No acute traumatic findings. Abdomen and pelvis: 1. No acute traumatic findings. 2. Minimal diverticulosis with mild stranding in the distal descending colon suggesting mild divertic ulitis in the appropriate clinical setting. Electronically signed by: Wilton Hurt MD 08/10/2021 2:27 AM CDT Due to temporary technical issues with the PACS/Fluency reporting system, reports are being signed by the in house radiologists without review as a courtesy to insure prompt reporting. The interpreting radiologist is fully responsible for the content of the report.
--- NOTE | 2021-08-10 19:51 | RAD REPORT ---
EXAM DESCRIPTION: XR Chest, 1 View CLINICAL HISTORY: PAIN TECHNIQUE: Frontal view of the chest. COMPARISON: No relevant prior studies available. FINDINGS: Lungs: Unremarkable. No consolidation. Pleural space: Unremarkable. No pneumothorax. Heart: Unremarkable. No cardiomegaly. Mediastinum: Unremarkable. Bones/joints: Remote right clavicular fracture. No acute fracture identified. IMPRESSION: No acute disease. Electronically signed by: Megan Aaron MD 08/10/2021 3:37 AM CDT Due to temporary technical issues with the PACS/Fluency reporting system, reports are being signed by the in house radiologists without review as a courtesy to insure prompt reporting. The interpreting radiologist is fully responsible for the content of the report.
--- NOTE | 2021-08-10 19:52 | RAD REPORT ---
EXAM DESCRIPTION: Femur Left CLINICAL HISTORY: PAIN COMPARISON: None. FINDINGS: 2 views of the left femur. No acute fracture or dislocation. Normal osseous mineralization . IMPRESSION: 1. No acute fracture or dislocation. Electronically signed by: Dallas Morillo 08/10/2021 3:43 AM CDT Due to temporary technical issues with the PACS/Fluency reporting system, reports are being signed by the in house radiologists without review as a courtesy to insure prompt reporting. The interpreting radiologist is fully responsible for the content of the report.
--- NOTE | 2021-08-10 21:02 | HP ---
Date of Admission: 08/10/2021 Brief History Of Present Illness: Patient is a 41-year-old male who was up cleaning his camera lense s last night on the ladder after having some beer approximately 4 to 5 beers and he says he fell off the ladder onto his left hip area. Denies LOC. Denies any other complaints other than left-sided hi p and flank pain basically where he fell. No other complaints at this time. His pain is improved, b ut it continues to be present and feels more like a soreness, this morning. Past Medical History: Negative. Past Surgical History: Negative. Allergies: TO PENICILLIN. Home Medications: None. Social History: He admits to drinking alcohol. Denies recreational drug use. Denies smoking. Review of Systems: Ten-point review of systems other than HPI, denies. Physical Examination: At the time of my examination: General: He is awake, alert, and oriented. Psychiatric: He is appropriate. Conversive. HEENT: He is normocephalic. His sclerae are anicteric. His mucosa is moist. His oropharynx is luciana ar. His extraocular muscles are intact. There is no malocclusion of his teeth. Neck: Supple without JVD. There was no injury or bony step-offs on his upper neck examination. Chest: Normal expansion and excursion. Cardiovascular: Regular rate and rhythm. Pulmonary: Clear to auscultation bilaterally. Abdomen: Soft, nontender, nondistended. No rebound. No guarding. No focal peritonitis. Extremities: No clubbing, cyanosis, or edema. Focused examination of the left lower extremity, he h as some mild tenderness to palpation on the left hip, lower leg and flank area and a very large distr ibution of approximately half his body length. It is vague and sore generally. He has full range of motion. Neurologic: No focal deficits appreciated. He has decreased movements of feet due to pain on the le ft side. Otherwise, no abnormal focality noted or localizing findings, I should say. Laboratory Exam: Which revealed a white blood cell count of 7.6, hemoglobin 13.0, hematocrit 38.9, p latelet count was 322, neutrophils of 48%. His sodium 137, potassium 3.3, chloride 104, carbon dioxi de 25, BUN 9, creatinine 0.9, glucose is 89, total bilirubin 0.4, direct bilirubin 0.1, AST 33, ALT 4 8, alkaline phosphatase is 73, lipase is 324. His plasma/serum alcohol was 136. Urinalysis was nega tive. He had imaging performed, which included an x-ray of his hip on the left, which showed no acut e fracture or dislocation. Normal osseous mineralization. [facility]. No acute fracture identified. Remainder is no acute d isease. He had also a CT Traumagram which included C-spine, head, chest, abdomen, pelvis, which was officially read as no acute traumatic findings on the head. No intracranial findings. Cervical spin e, no acute cervical spinal fracture. Mild anterior positioning of the lateral mass of C1 on the lef t with respect to C2, which is probably positional. Another differential would be rotary fixation. Chest, no acute traumatic findings. Abdomen and pelvis, no acute traumatic findings. Minimal divert iculosis with mild stranding of the descending colon suggesting mild diverticulitis in the appropriat e clinical setting. Assessment And Plan: This is a 41-year-old male who comes in after a fall with no loss of consciousn ess. No localizing deficits and no obvious injury other than mild musculoskeletal pain. 1.Examination did not reveal any significant findings necessitating admission at this point. 2.I will discharge the patient home today with Levaquin and Flagyl for his low-grade diverticular di sease and pain medication for improved pain control. I have explained to the patient that he should not be driving 8 to 12 hours within taking pain medication, not to be combined with other medications and/or no drinking alcohol while on any prescription medication. I have instructed the patient that he should follow up with me this week or next week at the latest. Should any issues occur and patie nt should consider follow up with his primary care doctor and/or route sales manager possibly to see i f a colonoscopy would be in his benefit. I would like him to follow up with me regarding his post ev ent followup to ensure that he is improving. I have explained risks, benefits, and alternatives of t he above stated plan. The patient agrees to proceed as indicated. WANDA/DAVID Voice ID: [id number]
[2021-08-11] MEDS ORDERED: Levofloxacin 750mg IV 750 MG/150 ML BAG IV SCH (04:00)
== END 2021-08-10 11:23 | disposition home or self-care (01) ==
LOC: ER 23:57 → ERHOLD 08-10 03:13
PROVIDERS: ADMIT Surgery; ATTEND Surgery
DX: M25.552 Pain in left hip (principal); R10.9 Unspecified abdominal pain; W11.XXXA Fall on and from ladder, initial encounter; Y93.89 Activity, other specified; K57.90 Diverticulosis of intestine, part unspecified, without perforation or abscess without bleeding; E87.6 Hypokalemia; Z88.0 Allergy status to penicillin
CPT/HCPCS: 36415; 70450; 71045; 71260; 72125; 72170; 74177; 80048; 80076; 80320; 81003; 83690; 85025; 86850; 86900; 86901; 96361; 96374; 96375; 99284; G0378; J1170; J2270; J2405; J3480; J3490; J7030; Q9967